=== PATIENT | female | born 1955 | race Caucasian/White ===

== ENCOUNTER 2018-07-20 11:00 | Outpatient (RCR) | payer BC ==
[~2018-07-20] VITALS: Ht 157.5 cm; Wt 130.2 kg
== END 2018-07-20 12:00 | disposition home or self-care (01) | DRG 594 ==
LOC: OPWC 11:00
PROVIDERS: ATTEND Family Medicine
DX: L97.909 Non-pressure chronic ulcer of unspecified part of unspecified lower leg with unspecified severity (principal); I89.0 Lymphedema, not elsewhere classified; I87.2 Venous insufficiency (chronic) (peripheral); Z48.00 Encounter for change or removal of nonsurgical wound dressing
CPT/HCPCS: G0463

== ENCOUNTER 2018-07-23 12:55 | Outpatient (RCR) | payer BC ==
[~2018-07-23] VITALS: Ht 157.5 cm; Wt 130.2 kg
--- NOTE | 2018-07-23 13:32 | NUR ---
Wound on RLE posterior is closed. No drainage observed. No Kaltostat applied this visit.
== END 2018-07-23 13:55 | disposition home or self-care (01) | DRG 594 ==
LOC: OPWC 12:55
PROVIDERS: ATTEND Family Medicine
DX: L97.909 Non-pressure chronic ulcer of unspecified part of unspecified lower leg with unspecified severity (principal); I87.2 Venous insufficiency (chronic) (peripheral); I89.0 Lymphedema, not elsewhere classified; Z48.00 Encounter for change or removal of nonsurgical wound dressing
CPT/HCPCS: G0463

== ENCOUNTER 2021-01-04 11:33 | Emergency (ER) | payer MEDICARE ==
[~2021-01-04] VITALS: Ht 157.5 cm; Wt 128.0 kg
[2021-01-04 12:02] LABS: HEMATOCRIT 41.3 % (37.0-47.0); HEMOGLOBIN 13.4 g/dl (12.0-16.0); IMMATURE GRANULOCYTES 1.8 % (0.0-5.0); MEAN CELL VOLUME 86.9 fL CALC (80.0-100.0); MEAN CORPUSCULAR HGB 28.2 pG CALC (26.0-32.0); MEAN CORPUSCULAR HGB CONC 32.4 g/dL CAL (32.0-36.0); NEUT# 14.49 thou/uL (2.00-7.15); RED BLOOD COUNT 4.75 mill/uL (4.20-5.60); RED CELL DISTRI WIDTH 13.3 % (11.5-15.5)
[2021-01-04 12:29] LABS: ALBUMIN 3.5 g/dL (3.2-5.0); ALKALINE PHOSPHATASE 74 u/l (38-126); CARBON DIOXIDE 27 mmol/l (22-30); CHLORIDE 93 mmol/l (95-108); CREATININE 1.5 mg/dL (0.5-1.0); GFR 35 ML/MIN (>=60 (CALC)); GFR FOR AFR.AMER. 42 ML/MIN (>=60 (CALC)); LIPASE 15 u/l (23-300); POTASSIUM 4.1 mmol/l (3.5-5.1); SGOT/AST 21 u/l (9-36); TOTAL PROTEIN 6.7 g/dL (6.3-8.2)
[2021-01-04 12:36] LABS: ANION GAP 16 (6-22 (CALC)); BILIRUBIN, TOTAL 1.3 mg/dL (0.0-1.4); BUN 64 mg/dL (8-23); BUN/CREATININE RATIO 43 (12-20 (CALC)); SODIUM 132 mmol/l (137-146)
[2021-01-04] MEDS ORDERED: NORVASC10 M1 PO (13:03)
[2021-01-04] MEDS ORDERED: LOSARTAN POTASS50 MG PO (13:04)
[2021-01-04] MEDS ORDERED: GLIPIZIDE ER2.5 MG PO (13:04)
[2021-01-04] MEDS ORDERED: TRAMADOL HCL50 MG PO (13:05)
[2021-01-04] MEDS ORDERED: CARVEDILOL25 MG PO (13:05)
[2021-01-04] MEDS ORDERED: BACLOFEN10 MG PO (13:06)
[2021-01-04] MEDS ORDERED: LORTAB 1010 MG PO (13:08)
[2021-01-04 14:59] VITALS: BP 115/53
== END 2021-01-04 14:59 | disposition short-term general hospital (02) ==
LOC: ED 11:33
PROVIDERS: Family Medicine
DX: K43.0 Incisional hernia with obstruction, without gangrene (principal); E11.9 Type 2 diabetes mellitus without complications; I10 Essential (primary) hypertension; N32.81 Overactive bladder; Z79.84 Long term (current) use of oral hypoglycemic drugs; Z90.710 Acquired absence of both cervix and uterus
CPT/HCPCS: Q9967